=== PATIENT | male | born 1930 | race Caucasian/White ===

== ENCOUNTER 2016-08-09 17:03 | Emergency (ER) | payer MEDICARE ==
[~2016-08-09] VITALS: Ht 175.3 cm; Wt 68.2 kg
[~2016-08-09 17:03] MED LIST: ASPI-973 PO; CHOL200047 PO; CYAN500 SL; DIGO125T73 PO; METF500T PO; NITR0.4T SL; POLY17PO6 PO; TRAM50TA2 PO
[2016-08-09 17:06] VITALS: BP 134/79; PULSE 95; RESP 20; O2SAT 96
--- NOTE | 2016-08-09 18:05 | ED.REPORT ---
HPI-General Illness Date of Service Aug 09, 2016 ED Provider: Joshua Lino DO Pt is an 85 y.o. male with a hx of DM, A-fib, and Parkinson's who presents to the ED from with sores to his back and left heel. recommended pt be seen here as they were concerned for ulceration. Per son pt fell 3 weeks ago and he has developed pressure sores from lying in bed. His son flew up from [facility] to help his mother take care of him.. His son states that pt does not want to be in the hospital and would like to " at home". Son reports that pt is currently in hospital bed at his home and that he is being turned over regularly. The son is unsure of the onset of the sores and says that he noticed them today. Pt is poor historian as he is incoherent when he speaks. Family requests limited intervention. Nursing Notes Stated Complaint: SORE ON FOOT,HIP,BUTTOCK Chief Complaint: Skin Rash/Abscess Nursing Notes Reviewed: Yes Allergies: Coded Allergies: Sulfa (Sulfonamide Antibiotics) (Verified Allergy, Intermediate, Rash, 11/15) Scheduled Aspirin (Aspirin) 81 Mg Tablet 81 MG PO DAILY Cholecalciferol (Vitamin D3) (Vitamin D3) 2,000 Unit Capsule 2,000 UNIT PO DAILY Cyanocobalamin (Vitamin B12) 500 Mcg Tablet 500 MCG SL DAILY Digoxin (Digoxin) 125 Mcg Tablet 125 MCG PO PM Metformin (Glucophage) 500 Mg Tablet 500 MG PO BIDWM Polyethylene Glycol 3350 (Miralax) 17 Gm Powd.pack 17 GM PO DAILY Tramadol (Tramadol) 50 Mg Tablet 50 MG PO BID Scheduled PRN Nitroglycerin SL (Nitrostat) 0.4 Mg Tab.subl 0.4 MG SL Q5MIN PRN PRN For Chest Pain General Time Seen by MD: 18:04 Chief Complaint Other (Abscess) Hx Obtained From: Son Unable to Obtain Hx: Patient condition Arrived By: Walk-in Sudden in Onset?: No Onset Occurred: Onset unknown Location: : Back: Foot left: Hip right Quality: Painful Severity: Current: Moderate Past Medical History Past Medical History Atrial fibrillation GI bleed Hemorrhoids Diabetes mellitus 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 He lives with his . He smoked tobacco for 50 years, but quit many years ago. 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 Alcohol Use: Denies alcohol use Drug Use: Denies drug use Other Social History: Local resident Ambulatory Status Independent Review of Systems Sores to left foot and back. Full Review of Systems Neurologic: Reports: Problem walking Complete sys rev & neg: except as marked. Physical Exam Vital Signs Vital Signs Date Time Temp Pulse Resp B/P Pulse Ox O2 Delivery O2 Flow Rate FiO2 08/09/16 20:59 74 20 91/54 96 Room Air 08/09/16 20:21 71 18 121/68 98 Room Air 08/09/16 17:06 36.4 95 20 134/79 96 Room Air Initial VS: Reviewed Head / Eyes: Atraumatic, Normocephalic ENT: Mucous membranes moist, Conjunctiva normal Neck: Supple, Non-tender Respiratory: Breath sounds normal Cardiovascular: Regular rate & rhythm Abdomen / GI: Soft, Non-tender, No guarding, No rebound, No distention Extremities: Vascular intact, Neuro intact, No swelling, No tenderness Skin: Warm, Dry, No cyanosis Neurologic: Alert Psychiatric: Mood/affect normal, Behavior normal, Normal thought content General/Constitutional: Awake Appearance / Presentation: Positive: Cachectic Pt is incoherent when he talks Pt is able to follow commands No point angelique tenderness. Skin excoriation. No signs of fracture Respiratory / Chest: Atraumatic, Breath sounds NL, No respiratory distress Cardiovascular: Heart rate NL, Peripheral circulation NL Lower Extremity / Pelvis / MS: Full range of motion, No swelling, Non-tender, No deformity, Neurologic intact, Vascular intact, No ligamentous injury Right Hip: Positive: Ecchymosis present (over the heel. No point angelique tenderness) Skin: Warm, Dry Decubitus Ulcer Notes: Not ulcers they are excoriations and bruises, not yet stageable Bright red excorriation of gluteal crest with no exposed bone or open ulceration. Pressure blister to left heel. Interpretation & Diagnostics Lab Results Interpretation Result Diagram: 08/09/16183408/09/16 183 Test 08/09/16 18:35 White Blood Count 7.3th/mm3 (3.8-10.1) Red Blood Count 4.72mil/mm3 (4.40-5.80) Hemoglobin 12.7g/dL (13.8-17.2) Hematocrit 39.4% (41.0-50.0) Mean Corpuscular Volume 83.5fL (81-100) Mean Corpuscular Hemoglobin 26.9pg (27.0-35.0) Mean Corpuscular Hemoglobin Concent 32.2% (32.0-37.0) Red Cell Distribution Width 13.2% (12.3-15.4) Platelet Count 265bil/L (150-400) Neutrophils (%) (Auto) 69.4% (40-74) Lymphocytes (%) (Auto) 12.6% (14-46) Monocytes (%) (Auto) 15.3% (4-12) Eosinophils (%) (Auto) 1.5% (0-5) Basophils (%) (Auto) 0.1% (0-3) Prothrombin Time 11.2sec (8.1-12.5) Prothromb Time International Ratio 1.05ratio Sodium Level 136mEq/L (134-144) Potassium Level 4.2mEq/L (3.5-5.2) Chloride Level 96mEq/L (97-108) Carbon Dioxide Level 28mmol/L (18-29) Blood Urea Nitrogen 16mg/dL (8-27) Creatinine 0.96mg/dL (0.76-1.27) Estimat Glomerular Filtration Rate 79mL/min (>59) Glucose Level 141mg/dL (60-99) Calcium Level 9.5mg/dL (8.5-10.1) Total Bilirubin 0.5mg/dL (0.0-1.2) Aspartate Amino Transf (AST/SGOT) 16U/L (0-50) Alanine Aminotransferase (ALT/SGPT) 13U/L (0-44) Alkaline Phosphatase 76U/L (25-160) Total Protein 6.9g/dL (6.4-8.4) Albumin 4.1g/dL (3.4-5.0) Hold Brambila Top Tube Received (Received) Re-Eval/Medical Decision Med Decision/Clinical Course Not ulcers they are excoriations and bruises, not yet stageable Family brought this gentleman in only to obtain resources for home health. They do not want him admitted. He does not want to be admitted. On exam I find no indication for admission. None of the wounds are infected. They all look like superficial bruises or excoriations. No skin ulcers. The skin breakdown areas were dressed with zinc. This was mainly for the excoriation on his buttocks. Family was instructed on turning him frequently. Our social studies teacher worked diligently to arrange for hospice evaluation at home. We will also refer for wound care follow-up. Family was very pleased with his care and the plan. The fall was 3 weeks ago and he is no longer ambulatory. Family declined imaging or hospital admission. They would like him to be at home with his loved ones and they would like hospice evaluation due to the severe nature of his dementia. Mr. Adams has no gross angelique deformities and his bones are not tender. I can respect the families decision and we will do all that we can to make their father comfortable. Source of Hx: Old records Consultation : Call Returned at: 19:27 Note: Family consulted with [employer] Counseled Regarding: Diagnosis Discharge & Departure Primary Impression: Skin breakdown Additional Impression: Dementia Dementia type: unspecified type Dementia behavioral disturbance: without behavioral disturbance Qualified Code: F03.90 - Unspecified dementia without behavioral disturbance Disposition: Home Discharge Condition All VS Reviewed: Yes Condition: Stable Additional Instructions: Apply zinc ointment as instructed by nurse. Follow-up with resources provided to you by the social studies teacher. Hospice evaluation has been established by our social studies teacher. I also recommend that she contact the [facility] wound care center for an evaluation. I think the hospice nurses can also get someone out to evaluate his wounds. Right now the wounds are not ulcers they are superficial excoriation. I think with good wound care and turning him off and he is going to do very well. It was very nice meeting you. Do not hesitate to return if you have any problems or he develops any new or worrisome symptoms. Referrals: Jeremie Middleton DO (PCP) Christiana Attestation Portions of this note were transcribed by Wyatt Cabrera. I, Dr. Lino personally performed the history, physical exam and medical decision-making; I reviewed and confirmed the accuracy of the information in the transcribed note. Signed by : Christiana Brewer, 08/09/16 and 2036. copies to: Jeremie Middleton Todd P DO Aug 09, 2016 18:05 WYATT CABRERA Aug 09, 2016 18:48
[2016-08-09 18:49] LABS: BASOPHILS % (AUTO) 0.1 % (0-3); EOSINOPHILS % (AUTO) 1.5 % (0-5); MONOCYTES % (AUTO) 15.3 % (4-12); Mean Corpuscular Hemoglobin 26.9 pg (27.0-35.0); Mean Corpuscular Volume 83.5 fL (81-100); NEUTROPHILS % (AUTO) 69.4 % (40-74); Platelet Count 265 bil/L (150-400)
[2016-08-09 19:08] LABS: INR 1.05 ratio
[2016-08-09 20:21] VITALS: BP 121/68; PULSE 71; RESP 18; O2SAT 98
[2016-08-09 20:59] VITALS: BP 91/54; PULSE 74; RESP 20; O2SAT 96
== END 2016-08-09 21:00 | disposition home or self-care (01) ==
LOC: SED 17:03
DX: S30.810A Abrasion of lower back and pelvis, initial encounter (principal); S90.822A Blister (nonthermal), left foot, initial encounter; W19.XXXA Unspecified fall, initial encounter; X50.9XXA Other and unspecified overexertion or strenuous movements or postures, initial encounter; Y92.003 Bedroom of unspecified non-institutional (private) residence as the place of occurrence of the external cause; Y93.89 Activity, other specified; Y99.8 Other external cause status; F03.90 Unspecified dementia, unspecified severity, without behavioral disturbance, psychotic disturbance, mood disturbance, and anxiety; E10.9 Type 1 diabetes mellitus without complications; I48.91 Unspecified atrial fibrillation; G20 Parkinson's disease; Z85.9 Personal history of malignant neoplasm, unspecified; Z87.891 Personal history of nicotine dependence; Z79.01 Long term (current) use of anticoagulants; Z79.82 Long term (current) use of aspirin; Z79.84 Long term (current) use of oral hypoglycemic drugs; Z88.2 Allergy status to sulfonamides
CPT/HCPCS: 36415; 80053; 85025; 85610; 99284; G0463